=== PATIENT | male | born 1940 | race African-American/Black ===

== ENCOUNTER 2020-03-08 07:17 | Inpatient (IN) | payer OTHER ==
[2020-03-08] MEDS ORDERED: MIDAZOLAM HCL 2 MG/2 ML SINGLE DOSE VIAL ONE (08:01)
--- NOTE | 2020-03-08 08:02 | HP ---
History & Physical Update - History History: No Change - Physical Physical: No Change - Assessment Assessment: No Change - Plan Plan: No Change
--- NOTE | 2020-03-08 08:04 | OP ---
Operative Note - Note: Operative Date: 03/08/20 Pre-Operative Diagnosis: prostate cancer Operation: focal L prostate cryoablation and cystoscopy Findings: heterogeneous prostate Post-Operative Diagnosis: Same as Pre-op Surgeon: Irwin Sanchez Anesthesiologist/TOSSER: Patel Vasquez Anesthesia: General Estimated Blood Loss (mls): 0 Drains & Tubes with Location: 18 fr marie Operative Report Dictated: Yes
[2020-03-08] MEDS ORDERED: ceFAZolin SODIUM 1 GM VIAL IVPB ONE (09:10)
[2020-03-08] MEDS ORDERED: ceFAZolin SODIUM 1 GM VIAL ONE (09:10)
[2020-03-08] MEDS ORDERED: LIDOCAINE HCL 2% JELLY (5 ML/TUBE) ONE (09:51)
[2020-03-08] MEDS ORDERED: LIDOCAINE HCL 2% JELLY 10 ML CARTRIDGE ONE (09:52)
[2020-03-08] MEDS ORDERED: BACITRACIN 15 GM TUBE TOPICAL OINTMENT ONE (10:29)
[2020-03-08] MEDS ORDERED: ONDANSETRON 4 MG/2 ML VIAL IVPUSH PRN (10:40)
[2020-03-08] MEDS ORDERED: LACTATED RINGERS SOLUTION 1,000 ML IV SCH (10:45)
[2020-03-08] MEDS ORDERED: AMOX TR/POT CLAV 500MG/125MG TABLETS (FP) PO SCH (17:30)
[2020-03-08] MEDS ORDERED: KETOROLAC TROMETHAMINE 10 MG TABLET PO PRN (17:51)
[2020-03-08] MEDS ORDERED: ACETAMINOPHEN 325 MG TABLET (FP) PO ONE (18:00)
[2020-03-08] MEDS: DEXTROSE 5%-0.45% SALINE 1,000 ML IV SCH (18:10)
[2020-03-08] MEDS: metoPROLOL SUCCINATE 25 MG TAB.SR.24H (FP) PO SCH (18:13)
[2020-03-08 19:45] LABS: BASO % 0.3 % (0-2.0); HEMATOCRIT 32.1 % (35.4-49); HEMOGLOBIN 10.5 GM/dL (11.7-16.9); LYMPH % 6.5 % (8-40); MCH 31.1 pg (25.7-33.7); MCHC 32.8 g/dl (32.0-35.9); MEAN CELL VOLUME 94.8 fl (80-96); MEAN PLT VOLUME 11.1 fl (7.5-11.1); MONO % 5.4 % (3.8-10.2); NEUT % 87.8 % (42.8-82.8); PLATELET COUNT 192 K/MM3 (134-434); RBC 3.38 M/mm3 (4.00-5.60); RDW 13.5 % (11.9-15.9); WHITE BLOOD COUNT 11.7 K/mm3 (4.0-10.0)
[2020-03-08] MEDS ORDERED: PIPERACILLIN/TAZOBACTAM 3.375 GM VIAL IVPB ONE (20:00)
[2020-03-08] MEDS ORDERED: DEXTROSE 5%-WATER - 50 ML IVPB ONE (20:01)
[2020-03-08] MEDS: PIPERACILLIN/TAZOB 3.375 GM 3.375 GM in DEXTROSE 5%-WATER - 50 ML IVPB SCH (20:23)
[2020-03-08] MEDS ORDERED: PIPERACILLIN/TAZOB 3.375 GM 3.375 GM in DEXTROSE 5%-WATER - 50 ML IVPB SCH (21:00)
[2020-03-08] MEDS ORDERED: ACETAMINOPHEN 325 MG TABLET (FP) PO PRN (22:00)
[2020-03-09] MEDS ORDERED: PIPERACILLIN/TAZOBACTAM 3.375 GM VIAL IVPB ONE ×3 (01:14→16:51)
[2020-03-09] MEDS ORDERED: DEXTROSE 5%-WATER - 50 ML IVPB ONE ×3 (01:14→16:51)
[2020-03-09] MEDS: DEXTROSE 5%-0.45% SALINE 1,000 ML IV SCH ×3 (02:00→17:04)
[2020-03-09] MEDS: PIPERACILLIN/TAZOB 3.375 GM 3.375 GM in DEXTROSE 5%-WATER - 50 ML IVPB SCH ×3 (03:08→17:01)
[2020-03-09 07:43] LABS: BASO % 0.4 % (0-2.0); EOS % 2.3 % (0-4.5); HEMATOCRIT 32.3 % (35.4-49); HEMOGLOBIN 10.7 GM/dL (11.7-16.9); LYMPH % 10.1 % (8-40); MCH 31.5 pg (25.7-33.7); MCHC 33.2 g/dl (32.0-35.9); MEAN CELL VOLUME 94.9 fl (80-96); MEAN PLT VOLUME 10.8 fl (7.5-11.1); MONO % 8.1 % (3.8-10.2); NEUT % 79.1 % (42.8-82.8); PLATELET COUNT 185 K/MM3 (134-434); RDW 13.4 % (11.9-15.9); WHITE BLOOD COUNT 10.4 K/mm3 (4.0-10.0)
[2020-03-09 07:53] LABS: BLOOD UREA NITROGEN 28.3 mg/dL (7-18); CALCIUM 8.1 mg/dL (8.5-10.1); CREATININE 1.5 mg/dL (0.55-1.3); POTASSIUM 3.5 mmol/L (3.5-5.1)
--- NOTE | 2020-03-09 10:21 | OP ---
DATE OF OPERATION: 03/08/2020 PREOPERATIVE DIAGNOSIS: Prostate cancer. POSTOPERATIVE DIAGNOSIS: Prostate cancer. PROCEDURE: Focal left prostate cryoablation and cystoscopy. SURGEON: Irwin Norman MD HEAD SHIPPER: None. ANESTHESIA: General via laryngeal mask. ANESTHESIOLOGIST: Patel Vasquez MD SPECIMENS: None. CULTURES: None. DRAINS: An 18-[place] Brian catheter. ESTIMATED BLOOD LOSS: Negligible. COMPLICATIONS: None. DESCRIPTION OF PROCEDURE: Patient was brought in the operating room, placed on the operating table in supine position. After the administration of general anesthesia via laryngeal mask, intravenous antibiotics were administered. Sequential compression devices were placed. Patient was placed in the dorsal lithotomy position. Perineum was shaved first. Then, the perineum and genitals were prepped and draped in usual sterile manner. An 18-[place] Brian catheter was placed per urethra into the bladder, 10 mL were placed in the balloon, and the bladder was filled with approximately 400 mL of sterile normal saline and clamped. Transrectal ultrasound probe was then inserted and transrectal ultrasound of the prostate was done and a plan was created for a focal left cryoablation. Once the plan was devised, 4 CryoProbes were inserted into the appropriate location under ultrasound guidance. Two temperature sensors were placed, one in external sphincter, one in [place] fascia under ultrasound guidance. Now, the Brian catheter was removed, and a flexible cystoscopy was performed, demonstrated no probes had penetrated the prostatic urethra nor the bladder. The prostatic urethra only measured approximately 3.5 cm in length, demonstrated mild bilobar intrusion. Bladder was entered, thoroughly inspected. There were no foreign bodies, tumors, stones, or inflammation. Both ureteral orifices were in their usual location with clear efflux bilaterally. Now, a Super Stiff guidewire was inserted through the cystoscope. The cystoscope removed and the urethral warmer was passed over the guidewire and urethral warming was started. Now, the cryoablation was done with 2 freeze/thaw cycles. At the end of the second thaw, urethral warmer was left in place for 5 minutes. The CryoProbes and temperature sensors were removed. Manual pressure on the perineum achieved hemostasis. A sterile compressive dressing, 4 x 4 and Tegaderm were applied. The urethral warmer was removed and a new 18-[place] Brian catheter was inserted and 10 mL placed in the balloon, placed on gravity drainage. Return minimally blood tinged. He tolerated the procedure well, was awoken from anesthesia in the operating room, transferred to the recovery room in stable condition. IRWIN NORMAN M.D. [id number]
[2020-03-09] MEDS: metoPROLOL SUCCINATE 25 MG TAB.SR.24H (FP) PO SCH (10:25)
--- NOTE | 2020-03-09 12:21 | PN ---
Progress Note (short form) - Note Progress Note: ID consult dictated imp/reccd fever s/p prostate cryoablation and cystoscopy hematuria resolving renal insuff- preop cr 1.2 continue ivf f/u cultures continue zosyn d/w dr almaraz Problem List - Problems (1) Fever Code(s): R50.9 - FEVER, UNSPECIFIED (2) Hematuria Code(s): R31.9 - HEMATURIA, UNSPECIFIED (3) S/P cystoscopy Code(s): Z98.890 - OTHER SPECIFIED POSTPROCEDURAL STATES (4) Renal insufficiency Code(s): N28.9 - DISORDER OF KIDNEY AND URETER, UNSPECIFIED
--- NOTE | 2020-03-09 14:59 | CONS ---
DATE OF CONSULTATION: DATE OF DICTATION: 03/09/2020 CHIEF COMPLAINT/HISTORY OF PRESENT ILLNESS: This is a 79-year-old man who has a history of prostate cancer. He was admitted on the for a left prostate cryoablation and cystoscopy. Post procedure he had fever, and he was admitted for further evaluation. I am asked to see him for his fever. He had cultures drawn and was started on piperacillin/tazobactam last night. I had a discussion with the nurse regarding his care. ALLERGIES: He has no known drug allergies. PAST MEDICAL HISTORY: Notable for history of prostate cancer. SOCIAL HISTORY: He lives at home with his . He is retired. REVIEW OF SYSTEMS: He has a poor appetite. He has not been eating well. There has been no nausea, vomiting. He has no pain. PHYSICAL EXAMINATION: General: He is a very thin man in no acute distress. He has a mild tremor in his left hand. Vital Signs: His T-max was 101.2 post procedure, currently 99.3. Pulse of 94, blood pressure 112/68, respiratory rate is 20. HEENT: Head is normocephalic. His eyes are anicteric. Neck: Supple. Lungs: Have diminished breath sounds at the bases. Heart: Regular rate and rhythm. Abdomen: Soft, nontender. Genitourinary: Brian is draining blood-tinged urine which per nurse is clearing up. Extremities: Without edema. LABORATORY: White count on admission was 11.7, this morning is 10.4. Hemoglobin is 10.7. Platelets are 185. BUN is 28 and creatinine 1.5. Baseline creatinine is 1.2. Cultures have been sent and are pending. I spoke with the urologist regarding his care. SUMMARY: This is a 79-year-old man with fever, status post prostate cryoablation and cystoscopy; hematuria, resolving; renal insufficiency. I would follow up cultures, continue Zosyn and IV fluids at this time. Encourage p.o. intake. Hopefully will be able to get him home in the morning. CHERYL PATEL M.D. [id number]
[2020-03-09] MEDS ORDERED: PIPERACILLIN/TAZOB 3.375 GM 3.375 GM in DEXTROSE 5%-WATER - 50 ML IVPB SCH (15:00)
[2020-03-09 15:18] VITALS: BMI 13.3
[2020-03-10] MEDS ORDERED: DEXTROSE 5%-WATER - 50 ML IVPB ONE ×2 (00:58→09:17)
[2020-03-10] MEDS ORDERED: PIPERACILLIN/TAZOBACTAM 3.375 GM VIAL IVPB ONE ×2 (00:58→09:17)
[2020-03-10] MEDS: PIPERACILLIN/TAZOB 3.375 GM 3.375 GM in DEXTROSE 5%-WATER - 50 ML IVPB SCH ×2 (01:21→09:20)
[2020-03-10] MEDS: DEXTROSE 5%-0.45% SALINE 1,000 ML IV SCH (05:15)
[2020-03-10 07:14] LABS: BASO % 0.5 % (0-2.0); EOS % 3.9 % (0-4.5); HEMATOCRIT 28.9 % (35.4-49); HEMOGLOBIN 9.5 GM/dL (11.7-16.9); LYMPH % 11.2 % (8-40); MCH 30.9 pg (25.7-33.7); MEAN CELL VOLUME 93.5 fl (80-96); MEAN PLT VOLUME 10.6 fl (7.5-11.1); NEUT % 75.4 % (42.8-82.8); PLATELET COUNT 165 K/MM3 (134-434); RBC 3.09 M/mm3 (4.00-5.60); RDW 13.6 % (11.9-15.9); WHITE BLOOD COUNT 8.2 K/mm3 (4.0-10.0)
[2020-03-10 07:24] LABS: CALCIUM 8.1 mg/dL (8.5-10.1); CREATININE 1.3 mg/dL (0.55-1.3); POTASSIUM 3.2 mmol/L (3.5-5.1)
[2020-03-10] MEDS: metoPROLOL SUCCINATE 25 MG TAB.SR.24H (FP) PO SCH (09:20)
--- NOTE | 2020-03-10 12:18 | PN ---
Progress Note (short form) - Note Progress Note: afebrile, alert no complaints Vital Signs Period Temp Pulse Resp BP Sys/Rizo Pulse Ox Last 24 Hr 97.9 F-99.3 F 76-102 18-20 100-112/60-68 95-97 cor-rrr llungs clear abd soft,nt ext no edema +marie CBC, BMP 03/10/20 05:22 03/10/20 05:22 Microbiology 03/08/20 18:18 Urine - Urine Clean Catch Urine Culture - Final NO GROWTH OBTAINED imp/reccd fevers resolved urine culture negative s/p prostate cryoablation and cystoscopy hematuria resolving can d/c zosyn and switch to augmentin f/u per urology
[2020-03-10 15:11] VITALS: BP 104/62; PULSE 78; TEMP 98.4
--- NOTE | 2020-03-10 15:33 | PN ---
Progress Note (short form) - Note Progress Note: pt w/o complaints eating and drinking poorly decr u/o marie drains well imp: stable for disch rto 03/14
== END 2020-03-10 17:17 | disposition home or self-care (01) | DRG 708 ==
LOC: JASU-SURG 07:17 → J8W 15:01 → JASU-SURG 03-09 13:40 → J8W 03-10 10:18
PROVIDERS: ADMIT Urology; ATTEND Urology
PROC: 0V503ZZ Destruction of Prostate, Percutaneous Approach (ICD-10-PCS; principal; 2020-03-08 09:30)
PROC: 0TJB8ZZ Inspection of Bladder, Via Natural or Artificial Opening Endoscopic (ICD-10-PCS; 2020-03-08 09:30)
DX: C61 Malignant neoplasm of prostate (principal); I10 Essential (primary) hypertension; R31.9 Hematuria, unspecified; N28.9 Disorder of kidney and ureter, unspecified; R50.9 Fever, unspecified
CPT/HCPCS: 36415; 80048; 85025; 87086; 94760